=== PATIENT | male | born 2000 | race Caucasian/White ===

== ENCOUNTER 2019-06-22 17:34 | Emergency (ER) | payer BC ==
[~2019-06-22] VITALS: Ht 175.3 cm; Wt 63.5 kg
[~2019-06-22 17:34] MED LIST: DOXYCYCLINE 10100 M2 PO; NORCO 5-325 TA1 EAC1 PO
[2019-06-22 18:24] LABS: ABSOLUTE BASOPHILS 0.1 thou/uL (0.0-0.2); ABSOLUTE EOSINOPHILS 0.3 thou/uL (0.0-0.7); ABSOLUTE MONOCYTES 0.5 thou/uL (0.0-1.2); ABSOLUTE NEUTROPHILS 5.5 thou/uL (1.6-8.1); EOSINOPHILS 4.1 %; HEMATOCRIT 42.2 % (42.0-52.0); HEMOGLOBIN 14.7 gm/dL (14.0-18.0); LYMPHOCYTES 23.9 %; MCH 28.9 pg (26.0-34.0); MCHC 34.9 g/dL (28.0-37.0); MONOCYTES 5.8 %; MPV 8.5 fl. (7.2-11.1); NUCLEATED RBCS 0 /100WBC; PLATELET COUNT* 189 thou/uL (150-400); POLYS 65.2 %; RBC 5.09 mil/uL (4.50-6.00); WBC 8.4 thou/uL (4.0-11.0)
[2019-06-22] MEDS ORDERED: NORCO 5-325 TA1 EAC1 PO (18:38)
[2019-06-22] MEDS ORDERED: IBUPROFEN 800800 M1 PO (18:40)
[2019-06-22 18:42] LABS: CALCIUM 9.3 mg/dL (8.5-10.1); CREATININE 0.9 mg/dL (0.6-1.3); POTASSIUM 3.8 mmol/L (3.5-5.1)
[2019-06-22 18:46] LABS: TOTAL BILIRUBIN 0.4 mg/dL (<0.1-1.0); TOTAL PROTEIN 7.6 g/dL (6.4-8.2)
[2019-06-22 18:57] VITALS: BP 114/64
== END 2019-06-22 18:57 | disposition home or self-care (01) ==
LOC: M.ERS 17:34
PROVIDERS: Nurse Practitioner Family
DX: N49.2 Inflammatory disorders of scrotum (principal); F12.10 Cannabis abuse, uncomplicated; Z88.0 Allergy status to penicillin